=== PATIENT | female | born 2000 | race Two or more races ===

== ENCOUNTER 2023-10-08 21:28 | Emergency (ER) | payer SELFPAY ==
[2023-10-08 21:34] VITALS: BP 129/90; PULSE 96; RESP 20; TEMP 98.7; BMI 30.9
[2023-10-08] MEDS ORDERED: IBUPROFEN 600 MG TABLET (FP) PO ONE (23:47)
[2023-10-08] MEDS ORDERED: SULFAMETHOXAZOLE/TRIMETHOPRIM 800MG/160MG D.S. TABLET ONE (23:48)
[2023-10-08] MEDS ORDERED: ACETAMINOPHEN 500 MG TABLET (FP) ONE (23:48)
[2023-10-08] MEDS: ACETAMINOPHEN 500 MG TABLET (FP) PO ONE (23:51)
[2023-10-08] MEDS: SULFAMETHOXAZOLE/TRIMETHOPRIM 800MG/160MG D.S. TABLET PO ONE (23:52)
[2023-10-08] MEDS: IBUPROFEN 600 MG TABLET (FP) PO ONE (23:52)
== END 2023-10-08 23:52 | disposition home or self-care (01) ==
LOC: JER 21:28 → JERFT 21:28
PROC: 0H98XZZ Drainage of Buttock Skin, External Approach (ICD-10-PCS; principal; 2023-10-08)
DX: L02.32 Furuncle of buttock (principal)
CPT/HCPCS: 99283-25